=== PATIENT | female | born 1985 | race American Indian/Alaskan Native ===

== ENCOUNTER 2022-01-19 16:33 | Emergency (ER) | payer SELFPAY ==
--- NOTE | 2022-01-19 17:35 | Emergency Department Report ---
ED Anxiety HPI - General Source: patient Mode of arrival: Ambulatory - History of Present Illness MD Complaint: anxiety, shortness of breath -: Gradual, week(s) Symptoms: dyspnea, chest pain, palpitations Place: home, work Previous History of Same: Yes Severity: severe Quality: intermittant Provoking factors: emotional stress, work/job stress, recent /illness of f Improves With: rest Worsens With: thinking about event Associated symptoms: chest pain, shortness of breath, palpitations. denies: brittney phoresis, confusion, cough, fever/chills, headaches, anorexia, malaise, nausea/vomiting, rash, seizure, syncope, weakness <RADHIKA LINDSEY - Last Filed: 01/19/22 17:30> <KELL LEW - Last Filed: 01/19/22 19:44> <TORRES ELMORE - Last Filed: 01/20/22 12:16> - General Chief Complaint: Anxiety Stated Complaint: AXIETY Time Seen by Provider: 01/19/22 17:02 - History of Present Illness Initial Comments: 36-year-old black female with a past medical history of hypertension and anxiety presents to the emergency room for evaluation of worsening anxiety, shortness of breath, and chest pain. She states that her mother October 26, 2021 and since then she has had intermittent anxiety that seems to be getting much worse. She states that over the past few days she has had several episodes of anxiety with chest pain and shortness of breath. She states that it seems that anytime she has a disagreement with anybody the past few days she gets overwhelmed and starts to have what feels like an anxiety or panic attack to her. She states that she feels like life has been so hard the past few months and she has had suicidal ideations. He states that sometimes she just feels like she just do not want to live because it is just too hard. She does not have plan or has not actively attempted but states that it is something that comes up in her mind very often. She states that after her mom's in October she saw a counselor that seemed to help initially but she is feeling again like she felt when her mom initially . (RADHIKA LINDSEY) I personally examined the patient. Patient informed that since the of her mother in October she became very depressed and had some suicidal thoughts. Patient stated that she thought about killing herself 2 days ago but she did not have a specific plan or strength to do it. Patient denied any auditory hallucination or visual hallucination but she stated that she has been dealing with a lot of nightmares seeing herself hit by car. (KELL LEW) - Related Data Allergies/Adverse Reactions: Allergies Allergy/AdvReac Type Severity Reaction Status Date / Time No Known Allergies Allergy Verified 01/19/22 20:00 ED Review of Systems Comment: All other systems reviewed and negative Constitutional: denies: chills, fever Respiratory: denies: cough, shortness of breath, SOB with exertion Cardiovascular: denies: chest pain, palpitations Gastrointestinal: denies: abdominal pain, nausea, vomiting, diarrhea, constip ation Musculoskeletal: denies: back pain Neurological: denies: headache, weakness, numbness, paresthesias, confusion Psychiatric: anxiety, depression, suicidal thoughts. denies: auditory hallucinations, visual hallucinations, homicidal thoughts <KELL LEW - Last Filed: 01/19/22 19:44> ROS: Stated complaint: AXIETY Other details as noted in HPI ED Past Medical Hx - Past Medical History Previous Medical History?: Yes Hx Hypertension: Yes (no meds) Additional medical history: Anxiety- No meds - Surgical History Past Surgical History?: Yes Additional Surgical History: Right knee surgery <RADHIKA LINDSEY - Last Filed: 01/19/22 17:30> ED Physical Exam - General Limitations: No Limitations <RADHIKA LINDSEY - Last Filed: 01/19/22 17:30> - General General appearance: alert, in no apparent distress, other (depressed.) - Head Head exam: Present: atraumatic, normocephalic - Eye Eye exam: Present: normal appearance - ENT ENT exam: Present: normal exam, normal orophraynx, mucous membranes moist - Neck Neck exam: Present: normal inspection, full ROM. Absent: tenderness, meningismus - Respiratory Respiratory exam: Present: normal lung sounds bilaterally - Cardiovascular Cardiovascular Exam: Present: regular rate, normal rhythm, normal heart sounds - GI/Abdominal GI/Abdominal exam: Present: soft, normal bowel sounds. Absent: distended, tenderness, guarding, rebound, rigid, organomegaly, mass, bruit, pulsatile mass - Extremities Exam Extremities exam: Present: normal inspection, full ROM, normal capillary refill. Absent: tenderness, pedal edema, joint swelling, calf tenderness - Back Exam Back exam: Present: normal inspection, full ROM. Absent: CVA tenderness (R), CVA tenderness (L), muscle spasm, paraspinal tenderness, vertebral tenderness - Neurological Exam Neurological exam: Present: alert, oriented X3, CN II-XII intact, normal gait, reflexes normal. Absent: motor sensory deficit - Psychiatric Psychiatric exam: Present: depressed, anxious, suicidal ideation. Absent: homicidal ideation - Skin Skin exam: Present: warm, normal color <KELL LEW - Last Filed: 01/19/22 19:44> ED Course Vital Signs 01/19/22 01/19/22 01/19/22 16:36 18:03 19:27 Temperature 98.3 F Pulse Rate 86 Respiratory 18 Rate Blood Pressure 153/119 Blood Pressure [Left] O2 Sat by Pulse 100 98 100 Oximetry 01/19/22 01/20/22 01/20/22 19:56 02:36 09:00 Temperature 98.6 F 98.9 F Pulse Rate 70 67 75 Respiratory 16 16 20 Rate Blood Pressure Blood Pressure 158/101 138/95 132/95 [Left] O2 Sat by Pulse 98 100 100 Oximetry ED Medical Decision Making - Lab Data Result diagrams: 01/19/22 18:07 01/19/22 18:07 <KELL LEW - Last Filed: 01/19/22 19:44> - Lab Data Result diagrams: 01/19/22 18:07 01/19/22 18:07 <TORRES ELMORE - Last Filed: 01/20/22 12:16> - Medical Decision Making Patient has been evaluated by our psychiatric team and recommended inpatient psychiatric treatment. (KELL LEW) Critical care attestation.: If time is entered above; I have spent that time in minutes in the direct care of this critically ill patient, excluding procedure time. ED Disposition <RADHIKA LINDSEY - Last Filed: 01/19/22 17:30> Is pt being admited?: No <KELL LEW - Last Filed: 01/19/22 19:44> Time of Disposition: 12:20 <TORRES ELMORE - Last Filed: 01/20/22 12:16> Clinical Impression: Depression, Anxiety Disposition: 01 HOME / SELF CARE / HOMELESS Condition: Stable Instructions: Managing Anxiety, Adult, Living With Depression Prescriptions: Trazodone HCl 50 mg PO QHS #30 Escitalopram Oxalate [Lexapro] 5 mg PO QDAY #30 hydrOXYzine PAMOATE [Vistaril] 25 mg PO BID PRN #60 capsule PRN Reason: Anxiety Referrals: CHAUNCEY RAPP MD [Primary Care Provider] - 3-5 Days Print Language: SWEDISH
[2022-01-19 18:16] LABS: HCG Qualitative,Urine Negative (Negative)
[2022-01-19 18:17] LABS: Bilirubin,Urine NEG (Negative); Blood,Urine NEG (Negative); Color,Urine Yellow (Yellow); Mucus,Urine 1+ /HPF; Protein,Urine <15 mg/dL mg/dL (Negative); Urobilinogen,Urine < 2.0 mg/dL (<2.0)
[2022-01-19 18:21] LABS: Hematocrit 37.6 % (30.3-42.9); Hemoglobin 12.3 gm/dl (10.1-14.3); Mean Corpuscular HGB Conc 33 % (30-34); Mean Corpuscular Volume 84 fl (79-97); Platelet Count 311 K/mm3 (140-440); Red Cell Distribution Width 14.8 % (13.2-15.2)
[2022-01-19 18:44] LABS: Alanine Aminotransferase 13 units/L (7-56); Albumin 4.4 g/dL (3.9-5); BUN/Creatinine Ratio 13; Blood Urea Nitrogen 10 mg/dL (7-17); Calcium 9.1 mg/dL (8.4-10.2); Hemolysis Index 6
[2022-01-19 19:13] LABS: Amphetamine Screen,Urine Negative; Benzodiazepines Screen,Urine Negative; Cocaine Screen,Urine Negative; Methadone Screen,Urine Negative; Opiate Screen,Urine Negative
[2022-01-19 19:25] LABS: Cannabinoid Screen,Urine Positive
[2022-01-19] MEDS ORDERED: cloNIDine 0.1 MG TAB PO ONE (19:58)
[2022-01-19] MEDS ORDERED: amLODIPine 5 MG TAB PO SCH (20:00)
[2022-01-20 10:37] VITALS: BP 132/95
--- NOTE | 2022-01-20 11:52 | Consultation ---
History of Present Illness - Reason for Consult Consult date: 01/20/22 Reason for consult: anxiety, depression - History of Present Psychiatric Illness The patient was seen today. She is calm, cooperative and polite. She says she was at work, and got dizzy and short of breath. The patient says she started having a panic attack. She says her talked her into coming to the ER. The patient says she lost her mom in October and has been having a hard time dealing with things. She says her and her mom were very close. She says although she's depressed, she denies SI/HI. The patient says "I've thought at times maybe I would be better off dying." She says "but I would never actually hurt myself. I have my nephew who needs me." She says "I wake up and thank God everyday for waking me up and giving me another chance at life. I want to be to my for many more years." The patient says she's never seen a psychiatrist or been on any medications. She denies any hallucinations or any illicit drug use, alcohol or nicotine. She is positive for THC. PAST PSYCHIATRIC HISTORY Diagnoses: Denies Suicide attempts or Self-harm behavior: Denies Prior psychiatric hospitalizations: Denies Substance Abuse history: Denies Previous psychiatric medications tried: Denies Outpatient treatment: Denies PAST MEDICAL HISTORY: None reported Family Psychiatric History: None reported or documented SOCIAL HISTORY Living arrangement: with family Marital status: Employment status: employed REVIEW OF SYSTEMS Constitutional: Negative for weight loss ENT: Negative for stridor Respiratory: Negative for cough or hemoptysis All other systems reviewed and are negative MENTAL STATUS EXAMINATION General Appearance and Behavior: Age appropriate, good hygiene, wearing appropriate clothes, good eye contact, calm, cooperative Cooperation: Participating/engaged, but Guarded Psychomotor Behavior: Psychomotor normal Mood: depressed Affect and affective range: congruent with stated mood Thought Process: goal directed Thought Content: none Speech: normal tone and pace Suicidal Ideation: Denies Homicidal Ideation: Denies Hallucinations: Denies Delusions: None elicited Impulse Control: Normal Insight and Judgment: Normal insight and judgment Memory: Normal Attention: attentive Orientation: Alert, oriented Assessment and Plan Major Depressive Disorder Generalized Anxiety Disorder Treatment Plan d/c 1013 Trazodone 50mg po qhs Lexapro 5mg po daily Vistaril 25mg po BID prn anxiety Sitter: per primary Medical: defer to primary Disposition: Do not recommend acute psychiatric inpatient treatment The steeping press tender to further discuss safety plan and give the patient all necessary outpatient resources The patient to follow up with outpatient in 7 to 14 days upon discharge Will sign off. Thanks Case staffed with Dr. Parks Medications and Allergies Allergies Allergy/AdvReac Type Severity Reaction Status Date / Time No Known Allergies Allergy Verified 01/19/22 20:00 Home Medications Medication Instructions Recorded Confirmed Last Taken Type Escitalopram Oxalate [Lexapro] 5 mg PO QDAY #30 01/20/22 Unknown Rx Trazodone HCl 50 mg PO QHS #30 01/20/22 Unknown Rx hydrOXYzine PAMOATE [Vistaril] 25 mg PO BID PRN #60 capsule 01/20/22 Unknown Rx Mental Status Exam - Vital signs Last Vital Signs Temp 98.9 F 01/20/22 09:00 Pulse 75 01/20/22 09:00 Resp 20 01/20/22 09:00 BP 132/95 01/20/22 09:00 Pulse Ox 100 01/20/22 09:00 Results Result Diagrams: 01/19/22 18:07 01/19/22 18:07 Abnormal lab results 01/19/22 01/19/22 01/19/22 Range/Units 17:53 18:07 18:07 MCH 27 L (28-32) pg Glucose 102 H (65-100) mg/dL Urine pH 8.0 H (5.0-7.0) Urine WBC (Auto) 8.0 H (0.0-6.0) /HPF Salicylates (2.8-20.0) mg/dL Acetaminophen (10.0-30.0) ug/mL 01/19/22 01/19/22 Range/Units 18:07 18:07 MCH (28-32) pg Glucose (65-100) mg/dL Urine pH (5.0-7.0) Urine WBC (Auto) (0.0-6.0) /HPF Salicylates < 0.3 L (2.8-20.0) mg/dL Acetaminophen 5.0 L (10.0-30.0) ug/mL All other labs normal.
== END 2022-01-20 12:59 | disposition home or self-care (01) ==
LOC: ED 16:33
DX: F32.9 Major depressive disorder, single episode, unspecified (principal); F41.9 Anxiety disorder, unspecified; I10 Essential (primary) hypertension; Z98.890 Other specified postprocedural states; Z79.899 Other long term (current) drug therapy
CPT/HCPCS: 36415; 80053; 80307; 80320; 81001; 81025; 85027; 99284; G0480

== ENCOUNTER 2022-06-26 09:34 | Emergency (ER) | payer SELFPAY ==
[2022-06-26] MEDS ORDERED: SODIUM CHLORIDE 0.9% 1000 ML 1,000 ML IV ONE (14:14)
[2022-06-26] MEDS ORDERED: METOCLOPRAMIDE 10 MG/2 ML INJ IV PRN (14:15)
[2022-06-26] MEDS ORDERED: dexAMETHasone 4 MG/ML VIAL IV ONE (14:15)
[2022-06-26] MEDS ORDERED: diphenhydrAMINE 50 MG/ML VIAL IV ONE (14:15)
--- NOTE | 2022-06-26 14:36 | XRay Report ---
XR chest routine 2V INDICATION / CLINICAL INFORMATION: fever, sob.. COMPARISON: None available. FINDINGS: SUPPORT DEVICES: None. HEART /PULMONARY VASCULATURE: No significant abnormality. LUNGS / PLEURA: Asymmetric prominence of the left hilar region. Lungs are otherwise clear. No sizable pleural effusion. No pneumothorax. ADDITIONAL FINDINGS: No significant additional findings. IMPRESSION: Asymmetric prominence of the left hilar region. This could reflect prominent pulmonary vascularity, t renata unable to exclude lymphadenopathy/mass. Recommend further evaluation with CT of the chest. Signer Name: Sid Richardson MD Signed: 06/26/2022 2:32 PM Workstation Name: [id number]
[2022-06-26 15:57] LABS: Hematocrit 35.1 % (30.3-42.9); Hemoglobin 11.6 gm/dl (10.1-14.3); Mean Corpuscular HGB Conc 33 % (30-34); Mean Corpuscular Volume 82 fl (79-97); Platelet Count 299 K/mm3 (140-440); Red Blood Count 4.27 M/mm3 (3.65-5.03); Red Cell Distribution Width 15.3 % (13.2-15.2)
[2022-06-26 16:01] LABS: Mucus,Urine FEW /HPF
[2022-06-26 16:09] LABS: Color,Urine Straw (Yellow)
[2022-06-26 16:40] LABS: Alanine Aminotransferase 14 units/L (7-56); Albumin 3.6 g/dL (3.9-5); BUN/Creatinine Ratio 13; Blood Urea Nitrogen 10 mg/dL (7-17); Calcium 8.5 mg/dL (8.4-10.2); Hemolysis Index 18
--- NOTE | 2022-06-26 16:45 | Emergency Department Report ---
ED N/V/D HPI - General Chief complaint: Medical Clearance Stated complaint: SORE THROAT/VOMITTING Time Seen by Provider: 06/26/22 14:13 Source: patient Mode of arrival: Ambulatory Limitations: No Limitations - History of Present Illness Initial comments: 36-year-old black female with no past medical history presents to the emergency department for evaluation of 4-day history of sore throat, nausea, vomiting, headache, diarrhea, and generalized weakness. She denies any sick contacts. She states that she has had a subjective fever but denies dysuria, abdominal pain. She states that her headache is 7 out of 10. MD complaint: nausea, vomiting, diarrhea, other (Sore throat) -: Gradual, days(s) (4) Associated Abdominal Pain: No Associated Symptoms: myalgias, cough, fever/chills, headaches, loss of appetite, malaise, nausea/vomiting, weakness. denies: chest pain, diaphoresis, rash, dysuria, shortness of breath, syncope - Related Data Previous Rx's Medication Instructions Recorded Last Taken Type Ibuprofen [Motrin 800 MG tab] 800 mg PO Q8HR PRN #15 tablet 08/11/15 Unknown Rx Amoxicillin/K Clav Tab [Augmentin 1 tab PO Q12HR 10 Days #20 tab 01/24/20 Unknown Rx 875 mg] Escitalopram Oxalate [Lexapro] 5 mg PO QDAY #30 01/20/22 Unknown Rx Trazodone HCl 50 mg PO QHS #30 01/20/22 Unknown Rx hydrOXYzine PAMOATE [Vistaril] 25 mg PO BID PRN #60 capsule 01/20/22 Unknown Rx Ondansetron [Zofran Odt] 4 mg PO Q8HR PRN #12 tab.rapdis 06/26/22 Unknown Rx cephALEXin [Keflex] 500 mg PO Q12HR 7 Days #14 cap 06/26/22 Unknown Rx Allergies Allergy/AdvReac Type Severity Reaction Status Date / Time No Known Allergies Allergy Verified 06/26/22 09:46 ED Review of Systems ROS: Stated complaint: SORE THROAT/VOMITTING Other details as noted in HPI Comment: All other systems reviewed and negative Constitutional: fever, malaise, weakness. denies: chills ENT: denies: congestion Respiratory: cough. denies: shortness of breath, SOB with exertion, SOB at rest, stridor, wheezing Cardiovascular: denies: chest pain, palpitations Gastrointestinal: nausea, vomiting. denies: abdominal pain, diarrhea, hematemesis, melena, hematochezia Genitourinary: denies: urgency, dysuria, frequency, hematuria Musculoskeletal: denies: back pain Neurological: headache, weakness ED Past Medical Hx - Past Medical History Hx Hypertension: Yes (no meds) Additional medical history: Anxiety- No meds - Surgical History Additional Surgical History: Right knee surgery - Social History Smoking Status: Never Smoker Substance Use Type: None - Medications Home Medications: Home Medications Medication Instructions Recorded Confirmed Last Taken Type Ibuprofen [Motrin 800 MG tab] 800 mg PO Q8HR PRN #15 tablet 08/11/15 Unknown Rx Amoxicillin/K Clav Tab [Augmentin 1 tab PO Q12HR 10 Days #20 tab 01/24/20 Unknown Rx 875 mg] Escitalopram Oxalate [Lexapro] 5 mg PO QDAY #30 01/20/22 Unknown Rx Trazodone HCl 50 mg PO QHS #30 01/20/22 Unknown Rx hydrOXYzine PAMOATE [Vistaril] 25 mg PO BID PRN #60 capsule 01/20/22 Unknown Rx Ondansetron [Zofran Odt] 4 mg PO Q8HR PRN #12 tab.rapdis 06/26/22 Unknown Rx cephALEXin [Keflex] 500 mg PO Q12HR 7 Days #14 cap 06/26/22 Unknown Rx ED Physical Exam - General Limitations: No Limitations General appearance: alert, in no apparent distress - Head Head exam: Absent: atraumatic, normocephalic - Eye Eye exam: Present: normal appearance. Absent: conjunctival injection, periorbital swelling, periorbital tenderness - ENT ENT exam: Present: normal exam, normal orophraynx, TM's normal bilaterally, normal external ear exam - Expanded ENT Exam Expanded Throat exam: Negative: tonsillar erythema, tonsillomegaly, tonsillar exudate, R peritonsillar mass, L peritonsillar mass - Neck Neck exam: Present: normal inspection, full ROM. Absent: tenderness, lymphadenopathy - Respiratory Respiratory exam: Present: normal lung sounds bilaterally. Absent: respiratory distress, wheezes, rales, rhonchi, stridor, chest wall tenderness - Cardiovascular Cardiovascular Exam: Present: regular rate, normal heart sounds - GI/Abdominal GI/Abdominal exam: Present: soft, normal bowel sounds. Absent: distended, tenderness, guarding, rebound, rigid - Extremities Exam Extremities exam: Present: normal inspection, full ROM, normal capillary refill. Absent: tenderness, pedal edema, joint swelling, calf tenderness - Back Exam Back exam: Present: normal inspection. Absent: tenderness, CVA tenderness (R), CVA tenderness (L), vertebral tenderness - Neurological Exam Neurological exam: Present: alert, oriented X3, CN II-XII intact, normal gait - Psychiatric Psychiatric exam: Present: normal affect, normal mood - Skin Skin exam: Present: warm, dry, intact, normal color ED Course Vital Signs 06/26/22 06/26/22 09:43 17:01 Temperature 98.9 F 98.4 F Pulse Rate 72 80 Respiratory 18 18 Rate Blood Pressure 142/95 152/90 [Right] O2 Sat by Pulse 100 99 Oximetry - Reevaluation(s) Reevaluation #1: 06/26/22 16:43 Headache and nausea vomiting resolved. Patient states that she feels much better and for the first time in several days she feels like eating. ED Medical Decision Making - Lab Data Result diagrams: 06/26/22 15:38 06/26/22 15:38 - Radiology Data Radiology results: report reviewed, image reviewed Chest x-ray: FINDINGS: SUPPORT DEVICES: None. HEART /PULMONARY VASCULATURE: No significant abnormality. LUNGS / PLEURA: Asymmetric prominence of the left hilar region. Lungs are otherwise clear. No sizable pleural effusion. No pneumothorax. ADDITIONAL FINDINGS: No significant additional findings. IMPRESSION: Asymmetric prominence of the left hilar region. This could reflect prominent pulmonary vascularity, though unable to exclude lymphadenopathy/mass. - Medical Decision Making 36-year-old black female with no past medical history presents to the emergency department for evaluation of 4-day history of sore throat, nausea, vomiting, headache, diarrhea, and generalized weakness. She denies any sick contacts. She states that she has had a subjective fever but denies dysuria, abdominal pain. She states that her headache is 7 out of 10. Physical exam unremarkable. Work-up positive for urinary tract infection. Patient has significant improvement of symptoms after medication. She will be discharged home with 7-day course of Keflex along with Zofran to use as directed. She is advised to increase her intake of noncaffeinated fluids and follow-up with her primary care provider if worsening symptoms. She is advised to return to the emergency department as needed. She verbalizes understanding of and agreement with plan of care. Lab Results 06/26/22 06/26/22 06/26/22 Range/Units 15:12 15:38 15:38 WBC 5.8 (4.5-11.0) K/mm3 RBC 4.27 (3.65-5.03) M/mm3 Hgb 11.6 (10.1-14.3) gm/dl Hct 35.1 (30.3-42.9) % MCV 82 (79-97) fl MCH 27 L (28-32) pg MCHC 33 (30-34) % RDW 15.3 H (13.2-15.2) % Plt Count 299 (140-440) K/mm3 Sodium 139 (137-145) mmol/L Potassium 4.4 (3.6-5.0) mmol/L Chloride 105.0 (98-107) mmol/L Carbon Dioxide 24 (22-30) mmol/L Anion Gap 14 mmol/L BUN 10 (7-17) mg/dL Creatinine 0.8 (0.6-1.2) mg/dL Estimated GFR > 60 ml/min BUN/Creatinine Ratio 13 % Glucose 86 (65-100) mg/dL Calcium 8.5 (8.4-10.2) mg/dL Total Bilirubin 0.20 (0.1-1.2) mg/dL AST 16 (5-40) units/L ALT 14 (7-56) units/L Alkaline Phosphatase 81 (35-129) units/L Total Protein 6.8 (6.3-8.2) g/dL Albumin 3.6 L (3.9-5) g/dL Albumin/Globulin Ratio 1.1 % Urine Color Straw (Yellow) Urine Turbidity Clear (Clear) Specific [place] (Man) 1.015 (1.003-1.030) Ur Protein (Man) <30 mg dl (Negative) mg/dL Ur Ketones (Man) Negative (Negative) Ur Nitrite (Man) Negative (Negative) Ur Reducing Substances Not Reportable Urine Bilirubin (Man) Negative (Negative) Urine Ictotest Not Reportable Leukocyte Esterase (Man) Negative (Negative) Urine WBC (Auto) 12.0 H (0.0-6.0) /HPF Urine RBC (Auto) 3.0 (0.0-6.0) /HPF U Epithel Cells (Auto) 4.0 (0-13.0) /HPF Urine RBC (Manual) 3+ (Negative) Urine Mucus Few /HPF Critical care attestation.: If time is entered above; I have spent that time in minutes in the direct care of this critically ill patient, excluding procedure time. ED Disposition Clinical Impression: Urinary tract infection Qualifiers: Urinary tract infection type: acute cystitis Hematuria presence: without hematuria Qualified Code(s): N30.00 - Acute cystitis without hematuria Disposition: HOME / SELF CARE / HOMELESS Is pt being admited?: No Does the pt Need Aspirin: No Condition: Stable Instructions: Antibiotic Medicine, Adult, [id number], Urinary Tract Infection, Adult Additional Instructions: Take medications as prescribed. Increase intake of noncaffeinated fluids. Follow-up with your primary care provider if worsening symptoms. Return to the emergency department as needed. Prescriptions: cephALEXin [Keflex] 500 mg PO Q12HR 7 Days #14 cap Ondansetron [Zofran Odt] 4 mg PO Q8HR PRN #12 tab.rapdis PRN Reason: Nausea And Vomiting Referrals: PRIMARY CARE, [Primary Care Provider] - 3-5 Days Forms: Work/School Release Form(ED) Time of Disposition: 16:45
[2022-06-26 17:04] VITALS: BP 152/90
== END 2022-06-26 17:05 | disposition home or self-care (01) ==
LOC: ED 09:34
DX: N39.0 Urinary tract infection, site not specified (principal); I10 Essential (primary) hypertension; R19.7 Diarrhea, unspecified; Z79.899 Other long term (current) drug therapy
CPT/HCPCS: 36415; 71046; 80053; 81001; 85027; 87086; 96361; 96374; 96375; 99284; J1100; J1200; J2765; J7030